=== PATIENT | female | born 1985 | race Caucasian/White ===

== ENCOUNTER → 2016-05-07 | Outpatient (CLI) | payer OTHER ==
--- NOTE | 2016-05-08 07:25 | USB ---
Reason for exam: follow-up at short interval from prior study. Physical Findings: Nurse did not find any significant physical abnormalities on exam. US Breast LT Left breast ultrasound including all four quadrants, the retroareolar region and axilla demonstrates a 0.4 x 0.2 x 0.4cm oval lesion too small to characterize at 9 o'clock and a 0.7 x 0.4 x 0.7cm oval, cystic lesion at 10 o'clock. These results were verbally communicated with the patient and result sheet given to the patient on 05/07/16. ASSESSMENT: Benign, BI-RAD 2 RECOMMENDATION: Routine screening mammogram of both breasts at age 40.
== END | disposition home or self-care (01) ==
LOC: RADUSWWP 14:51
PROVIDERS: ATTEND Family Medicine
DX: N64.59 Other signs and symptoms in breast (principal)

== ENCOUNTER → 2016-12-11 | Outpatient (CLI) | payer OTHER ==
--- NOTE | 2016-12-11 19:05 | MR ---
EXAMINATION TYPE: MR knee RT wo con DATE OF EXAM: 12/11/2016 COMPARISON: NONE HISTORY: Unilateral primary osteoarthritis per order, right knee, pain x 10 months per patient. Patie nt's history of prior right knee surgery. TECHNIQUE: Multiplanar, multisequence images of the knee is performed without IV contrast. FINDINGS: MEDIAL MENISCUS: Anterior horn is intact without tear. There is triangular-shaped increased opacity p osterior horn of medial meniscus does not distinctly extend to articular surface, findings are consis tent with full-thickness meniscal tear. LATERAL MENISCUS: Anterior and posterior horns are intact without tear. CRUCIATE LIGAMENTS: The anterior and posterior cruciate ligaments are intact. Increased signal is see n diffusely and anterior cruciate ligament. COLLATERAL LIGAMENTS: The medial collateral ligament and lateral collateral ligament complex are inta ct and unremarkable. EXTENSOR MECHANISM: Visualized quadriceps and patellar tendons are intact. There is well-defined loss of Hoffa's fat pad particularly inferior and deeper aspects, this is presumed related to prior surge ry for cyst removal per patient. EFFUSION: No significant suprapatellar joint effusion. POPLITEAL CYST: No popliteal/rice cyst. TRICOMPARTMENT SPACES: Mild to moderate joint space loss medial tibiofemoral compartment is seen. No significant spurring is noted. CARTILAGE: Patellar articular cartilage is fairly well-maintained. Some mild thinning of articular ca rtilage medial tibiofemoral compartment is noted BONE MARROW SIGNAL: Heterogeneity of bone marrow signal intensity consistent with red marrow reconver ceci is present most prominent in the visualized distal femur. OTHER: No additional significant abnormality is appreciated. IMPRESSION: 1. Evidence of prior surgery anteriorly at level of Hoffa's fat pad. 2. Intrasubstance tear posterior horn of medial meniscus. No full-thickness meniscal or ligamentous t ear is seen. 3. Myxoid degeneration ACL. 4. Mild to moderate joint space loss patellofemoral compartment. Mild thinning of articular cartilage medial tibiofemoral compartment.
== END | disposition home or self-care (01) ==
LOC: RADMRIMAIN 15:04
PROVIDERS: ATTEND Family Medicine
DX: S83.241A Other tear of medial meniscus, current injury, right knee, initial encounter (principal); M17.11 Unilateral primary osteoarthritis, right knee

== ENCOUNTER → 2018-05-14 | Outpatient (CLI) | payer OTHER ==
--- NOTE | 2018-05-14 17:19 | US ---
EXAMINATION TYPE: US abdomen complete DATE OF EXAM: 05/14/2018 COMPARISON: NONE CLINICAL HISTORY: R10.9 ABD PAIN. Patient stated has epigastric pain and /fullness after meals and no steve x 3 months; bilateral pelvic pain EXAM MEASUREMENTS: Liver Length: 17.9 cm Gallbladder Wall: 0.2 cm CBD: 0.3 cm Spleen: 11.5 cm Right Kidney: 11.7 x 8.4 x 5.9 cm Left Kidney: 8.3 x 4.9 x 4.9 cm Pancreas: wnl Liver: wnl Gallbladder: wnl Evidence for sonographic Krishnan's sign: no CBD: wnl Spleen: wnl Right Kidney: wnl Left Kidney: smaller than right kidney; mild hydronephrosis with noted dilated renal pyramids throug hout Upper IVC: wnl Abd Aorta: wnl IMPRESSION: Visualized abdomen ultrasound is unremarkable.
--- NOTE | 2018-05-14 17:21 | US ---
EXAMINATION TYPE: US pelvic complete DATE OF EXAM: 05/14/2018 COMPARISON: NONE CLINICAL HISTORY: R10.2 PELVIC AND PERINEAL PAIN. Patient stated has bilateral pelvic pain x 3 months , hormonal imbalance; G0; TECHNIQUE: Transabdominal (TA). Transabdominal sonographic images of the pelvis were acquired. Date of LMP: 05/05/2018 EXAM MEASUREMENTS: Uterus: 7.1 x 3.6 x 2.8 cm Endometrial Stripe: 0.5 cm Right Ovary: 2.9 x 2.1 x 2.5 cm Left Ovary: 4.0 x 3.1 x 2.4 cm 1. Uterus: Anteverted 2. Endometrium: thickness is wnl for Day 10 LMP 3. Right Ovary: multiple follicles with largest cyst = 1.1 x 0.9 x 1.0cm. 4. Left Ovary: multiple follicles with largest seen as cyst within a cyst = 1.8 x 1.4 x 1.1cm. Spectral, color and waveform Doppler imaging shows good arterial and venous flow within the ovaries ; there is no evidence for ovarian torsion. 5. Bilateral Adnexa: distended, fluid filled loop of bowel noted left superiorly near umbilicus, con tinuing mid at left ovary and followed distally in posterior pelvis, with dynamic peristalsing wall c hanges observed 6. Posterior cul-de-sac: small amount of free fluid here = 1.0 x 1.3 x 0.3 x 0.523 = 0.2ml. Urinary bladder is sonolucent. Posterior wall is normal. IMPRESSION: 1. Left ovarian cyst. 2. Small right ovarian cyst.
== END | disposition home or self-care (01) ==
LOC: RADUSWWP 06:55
PROVIDERS: ATTEND Family Medicine
DX: N83.201 Unspecified ovarian cyst, right side (principal); N83.202 Unspecified ovarian cyst, left side; R10.9 Unspecified abdominal pain
CPT/HCPCS: 76700; 76856

== ENCOUNTER 2018-05-29 08:34 | Day surgery (SDC) | payer OTHER ==
[2018-05-27 13:47] VITALS: BMI 32.5
[~2018-05-29 08:34] MED LIST: LACTATED RINGERS 1,000 ML IV SCH; LIDOCAINE 1% 20 ML VIAL (10MG/ML) FOR IV START INTRADERMA PRN
[2018-05-29 09:13] VITALS: TEMP 97.6
[2018-05-29] MEDS ORDERED: LIDOCAINE 1% INJ 10MG/ML (20 ML MDV) ONE (10:14)
[2018-05-29] MEDS ORDERED: PROPOFOL 10 MG/ML 20 ML VIAL IV ONE (10:14)
--- NOTE | 2018-05-29 10:49 | P.PCN ---
Date of Procedure: 05/29/18 Procedure(s) Performed: Procedure: Esophagogastroduodenoscopy and biopsy. Preoperative diagnosis: Gastroesophageal reflux and epigastric burning not responding to medical therapy. Postoperative diagnosis: 1. Sliding hiatal hernia with reflux esophagitis. 2. Mild gastritis. 3. Biopsies obtained from the duodenum, antrum and esophagus. Preparation and sedation: Was provided by anesthesia. Brief clinical history: The patient is a 33-year-old female who was referred for issues with heartburn and reflux over around 2 months duration. She denied any alarm symptoms. No nausea or vomiting. This evaluation is to assess for esophagitis, complicated reflux disease or other pathology. Procedure: With the patient on her left lateral decubitus position and after informed consent and adequate sedation, I passed the Olympus-GIF H190 video upper endoscope through the cricopharyngeus down the esophagus. GE junction was around 38 cm from the incisors and there was a 1-2 cm sliding hiatal hernia with evidence of LA grade B distal reflux esophagitis. There were some corrugations in the esophagus raising the possibility of eosinophilic esophagitis as well. There were no definite strictures. The endoscope was then passed into the stomach which was insufflated with air and inspected in detail including the retroflex view in the cardia. There was some mottling and erythema in the antrum but no ulcers or erosions. Pyloric channel , duodenal bulb, post bulbar area and descending duodenum appeared within normal limits. I obtained biopsies from the duodenum, antrum and esophagus then the endoscope was withdrawn. The patient tolerated the procedure well. Plan: The patient was reassured. Will await biopsy results and make further plans based on her course and biopsy results. She will follow-up with you as planned and I will keep you updated on her progress.
[2018-05-29 10:50] VITALS: BP 121/82; PULSE 72; RESP 18
== END 2018-05-29 11:40 | disposition home or self-care (01) ==
LOC: ORWHC2ENDO 08:34
DX: K21.0 Gastro-esophageal reflux disease with esophagitis (principal); K29.50 Unspecified chronic gastritis without bleeding; K44.9 Diaphragmatic hernia without obstruction or gangrene; I10 Essential (primary) hypertension; Z79.899 Other long term (current) drug therapy
CPT/HCPCS: 81025; 88305; 43239; J2001; J2704

== ENCOUNTER → 2021-06-01 | Outpatient (CLI) | payer OTHER ==
--- NOTE | 2021-06-01 12:40 | MR ---
EXAMINATION TYPE: MR knee RT wo con DATE OF EXAM: 06/01/2021 COMPARISON: MRI right leg 12/11/2016 HISTORY: Right outer knee pain, pain behind knee, locking, and swelling for 6 months due to fall on k nee. History of surgery. TECHNIQUE: Multiplanar, multisequence imaging of the right knee is performed without IV contrast. FINDINGS: There is motion on the exam which could limit evaluation. MEDIAL MENISCUS: There is abnormal increased intrasubstance signal within the medial meniscus, no def initive tear identified, detail is limited LATERAL MENISCUS: Anterior and posterior horns are intact without tear within the limitations of the exam. CRUCIATE LIGAMENTS: Fibers of the anterior cruciate ligament appear attenuated, there is some fluid s ignal along the course of the fibers especially in its proximal extent, there may be associated gangl ion cyst measuring 2 cm, partial tear, similar findings seen on prior exam COLLATERAL LIGAMENTS: The medial collateral ligament and lateral collateral ligament complex are inta ct and unremarkable. EXTENSOR MECHANISM: Visualized quadriceps and patellar tendons are intact. EFFUSION: There is a small joint effusion, Hoffa's fat pad shows a similar appearance to prior POPLITEAL CYST: No popliteal/rice cyst. TRICOMPARTMENT SPACES: Maintained CARTILAGE: There are areas of fissuring at the posterior patellar cartilage, axial image #27 consiste nt with grade 2 to grade III chondromalacia, BONE MARROW SIGNAL: Within normal limits OTHER: There is some subcutaneous edema noted anteriorly to be patellar tendon IMPRESSION: Motion limits the detail of the exam. Chondromalacia noted at the posterior patella, additional findi ngs above
== END | disposition home or self-care (01) ==
LOC: RADMRIMAIN 09:34
PROVIDERS: ATTEND Nurse Practitioner Adult Health
DX: M22.41 Chondromalacia patellae, right knee (principal)

== ENCOUNTER → 2023-02-11 | Outpatient (CLI) | payer OTHER ==
--- NOTE | 2023-02-11 14:41 | US ---
EXAMINATION TYPE: US extremity nonvasc mass RT DATE OF EXAM: 02/11/2023 COMPARISON: NONE CLINICAL INDICATION: Female, 38 years old with history of D17.30 BENIGN LIPOMATOUS NEOPLASM OF SKIN; Pt states palpable lump right anterior ankle/vyas x 1 month/ pt states history of lipomas in differen t parts of her body TECHNIQUE: Right anterior ankle/vyas FINDINGS: Vague, Isoechoic to slightly hyperechoic area in pt's palpable= 1.3 x 0.5 x 1.1 cm ?poss ible lipoma IMPRESSION: Probable lipoma. Correlate clinically.
== END | disposition home or self-care (01) ==
LOC: RADUSWWP 13:50
PROVIDERS: ATTEND Family Medicine
DX: D17.30 Benign lipomatous neoplasm of skin and subcutaneous tissue of unspecified sites (principal)

== ENCOUNTER → 2023-05-09 | Day surgery (SDC) | payer OTHER ==
[2023-05-06 11:03] VITALS: BMI 32.5
[~2023-05-09] MED LIST changes: +HYDROmorphone 0.5 MG/0.5 ML SYRINGE IVP PRN; -LACTATED RINGERS 1,000 ML IV SCH; +LIDOCAINE 1% (10MG/ML) FOR IV START INTRADERMA PRN; -LIDOCAINE 1% 20 ML VIAL (10MG/ML) FOR IV START INTRADERMA PRN; +LIDOCAINE 1% INJ 10MG/ML (20 ML MDV) ONE; +MIDAZOLAM 2 MG/2 ML VIAL ONE; +ONDANSETRON 4 MG/2 ML VIAL IVP PRN; +PROPOFOL 10 MG/ML 20 ML VIAL IV ONE; +Pre Op ABX Message 1 EACH MISC MISCELLANE ONE; +droPERidol 5 MG/2 ML VIAL IVP ONE; +fentaNYL (PF) 50 MCG/ML 2 ML AMP ONE
--- NOTE | 2023-05-09 06:18 | P.GSHP ---
History of Present Illness H&P Date: 05/09/23 CHIEF COMPLAINT: Right lower leg mass HISTORY OF PRESENT ILLNESS: The patient is a 89year-old female who presents with painful right lower leg mass for over 6 months. She presents today for surgical excision. PAST MEDICAL HISTORY: Please see list. PAST SURGICAL HISTORY: Please see list. MEDICATIONS: Please see list. ALLERGIES: Please see list. SOCIAL HISTORY: No illicit drug use FAMILY HISTORY: No reports of Crohn disease or ulcerative colitis. REVIEW OF ORGAN SYSTEMS: CONSTITUTIONAL: No reports of fevers or chills. GI: Denies any blood in stools or constipation. PHYSICAL EXAM: VITAL SIGNS: Stable Musculoskeletal: Right anterior lower leg mass, 3 cm SKIN: Lesion identified along bilateral thighs. GENERAL: Well developed and in no acute distress. Pleasant. HEENT: No sclera icterus. Extraocular movements grossly intact. Moist buccal mucosa. Head is atraumatic, normocephalic. Hears conversational speech. No nasal drainage. NECK: Supple without lymphadenopathy. No JV distention. CHEST: Non-labored respirations and equal bilateral excursions. CARDIOVASCULAR: Regular rate and rhythm. Palpable 2+ radial pulses. ABDOMEN: Soft. Non-tender. Nondistended. NEUROLOGIC: No focal or lateralizing signs. PSYCH: Appropriate affect. Alert and oriented to person, place and time. ASSESSMENT: 1. Right lower leg mass PLAN: 1. Will proceed of excision of subcutaneous tumors along right lower leg mass 2. DVT prophylaxis. 3. Antibiotic prophylaxis. 4. Time of recovery, at least one week. Past Medical History Past Medical History: Hypertension Additional Past Medical History / Comment(s): dizziness at times, upper abdominal pain History of Any Multi-Drug Resistant Organisms: None Reported Past Surgical History: Orthopedic Surgery Additional Past Surgical History / Comment(s): rt carpal tunnel release, cyst removed from rt knee, lasik eye surgery, VAIRCOSE VEIN STRIPPING Past Anesthesia/Blood Transfusion Reactions: Motion Sickness Smoking Status: Never smoker - Past Family History Mother Family Medical History: No Reported History Medications and Allergies Home Medications Medication Instructions Recorded Confirmed Type Cyanocobalamin [Vitamin B-12 1,000 mcg IM QMONTHLY 05/06/23 05/06/23 History Injection] Losartan Potassium 100 mg PO DAILY 05/06/23 05/06/23 History Tirzepatide [Zepbound] 5 mg SQ WE 05/06/23 05/06/23 History hydroCHLOROthiazide [Hydrodiuril] 25 mg PO DAILY 05/06/23 05/06/23 History medroxyPROGESTERone [Depo-Provera] 150 mg IM Q90D 05/06/23 05/06/23 History Allergies Allergy/AdvReac Type Severity Reaction Status Date / Time No Known Allergies Allergy Verified 05/06/23 10:32
[2023-05-09] MEDS: LACTATED RINGERS 1,000 ML IV SCH (07:16)
[2023-05-09] MEDS: DEXAMETHASONE SOD PHOSPHATE 4 MG/ML 1 ML VIAL IV ONE (07:22)
[2023-05-09] MEDS: ONDANSETRON 4 MG/2 ML VIAL IVP ONE (07:22)
[2023-05-09] MEDS: ACETAMINOPHEN TAB 500 MG TAB PO PRN (07:22)
[2023-05-09] MEDS: HEPARIN SODIUM,PORCINE 5,000 UNIT/ML 1 ML VIAL SQ PRN (07:22)
[2023-05-09 07:44] LABS: Basophils % (A) 1 %; Eosinophils # (A) 0.2 k/uL (0-0.7); Eosinophils % (A) 4 %; HGB 14.2 gm/dL (11.4-16.0); Lymphocytes # (A) 1.6 k/uL (1.0-4.8); Lymphocytes % (A) 31 %; MCH 32.4 pg (25.0-35.0); MCHC 34.5 g/dL (31.0-37.0); Mean Platelet Volume 6.9; Monocytes # (A) 0.4 k/uL (0-1.0); Monocytes % (A) 8 %; Neutrophils # (A) 2.7 k/uL (1.3-7.7); Neutrophils % (A) 54 %; Platelet Count 235 k/uL (150-450); RBC 4.37 m/uL (3.80-5.40); RDW 11.4 % (11.5-15.5)
[2023-05-09 07:52] LABS: ALT 19 U/L (4-34); AST 27 U/L (14-36); African American GFR (CKD) >90 (>60 ml/min/1.73 sqM); Albumin 4.2 g/dL (3.5-5.0); Alkaline Phosphatase 59 U/L (38-126); Anion Gap 9 mmol/L; Blood Urea Nitrogen 14 mg/dL (7-17); Calcium 9.2 mg/dL (8.4-10.2); Carbon Dioxide 25 mmol/L (22-30); Chloride 105 mmol/L (98-107); Glucose 84 mg/dL (74-99); Non-African American GFR(CKD) >90 (>60 ml/min/1.73 sqM); Potassium 3.8 mmol/L (3.5-5.1); Sodium 139 mmol/L (137-145); Total Bilirubin 0.4 mg/dL (0.2-1.3); Total Protein 6.9 g/dL (6.3-8.2)
[2023-05-09] MEDS: LIDOCAINE 0.5%-EPI 1:200,000 50 ML VIAL SQ ONE ×2 (08:42→09:04)
[2023-05-09 09:52] VITALS: TEMP 97
--- NOTE | 2023-05-09 10:01 | P.OP ---
Date of Procedure: 05/09/23 Description of Procedure: SURGEON: ALTHEA AGUILA MD FAGOT MAKER: NONE. PREOPERATIVE DIAGNOSES: 1. Right lower leg mass 2. Obesity due to excess calories, BMI 32.8 POSTOPERATIVE DIAGNOSES: 1. Right lower leg mass, anterior lateral, 4 x 3 cm 2. Obesity due to excess calories, BMI 32.8 OPERATION: 1. Excision of right lower leg mass, subfascial tumor, 4 x 3 cm. 2. Intermediate closure of anterior lateral right lower leg incision, 5 cm. ANESTHESIA: LMA with local ESTIMATED BLOOD LOSS: 5 mL. SPECIMENS REMOVED: 1. Right lower leg anterior lateral tumor COMPLICATIONS: None. FINDINGS: 1. Right lower leg thigh excision, 4 x 3 cm subcutaneous tissue INDICATIONS: The patient is a 38-year-old female who presents with painful right lower leg tumor. Surgical options, including excision was discussed. Benefits and risks were described. Informed consent was obtained. DESCRIPTION OF PROCEDURE: Patient was brought into the operating room, laid in left lateral decubitus position. After adequate LMA, the right lower leg was prepped and draped in standard sterile fashion using ChloraPrep. A timeout protocol was confirmed with the surgical team regarding patient's name including procedures to be performed. Preoperative medications was administered. Next, a local field block was administered. The right lower leg anterior lateral mass was measured using a ruler with borders marked with indelible marker. A longitudinal incision along the skin tension lines of 5 cm in size was made into the dermis followed by circumferential dissection using electro-Bovie cautery into the subcutaneous tissue where extensions was found into the deep fascia, subfascial. The tumor was expressed from the wound and dissected free from surrounding tissues. Hemostasis was checked with electrocautery cautery. The skin was cleansed. The wound was closed in multiple layers including 3-0 Vicryl for the deep subcutaneous tissue in interrupted fashion. The skin was closed using 4-0 Monocryl. Exofin tape including liquid glue was used as the final third layer. Optifoam dressing was placed. Coban was placed At the end of the procedure, needle, sponge, and instrument count had been verified correct by the certified surgical assistant. The patient was taken to the postanesthesia care unit in stable condition. Plan - Discharge Summary Discharge Rx Participant: No New Discharge Prescriptions: New Acetaminophen Tab [Tylenol Tab] 1,000 mg PO Q6HR PRN #30 tablet PRN Reason: Pain Ibuprofen [Motrin] 600 mg PO Q8HR PRN #30 tab PRN Reason: Pain Continue Cyanocobalamin [Vitamin B-12 Injection] 1,000 mcg IM QMONTHLY Tirzepatide [Zepbound] 5 mg SQ WE Losartan Potassium 100 mg PO DAILY medroxyPROGESTERone [Depo-Provera] 150 mg IM Q90D hydroCHLOROthiazide [Hydrodiuril] 25 mg PO DAILY Discharge Medication List Cyanocobalamin [Vitamin B-12 Injection] 1,000 mcg IM QMONTHLY 05/06/23 [History] Losartan Potassium 100 mg PO DAILY 05/06/23 [History] Tirzepatide [Zepbound] 5 mg SQ WE 05/06/23 [History] hydroCHLOROthiazide [Hydrodiuril] 25 mg PO DAILY 05/06/23 [History] medroxyPROGESTERone [Depo-Provera] 150 mg IM Q90D 05/06/23 [History] Acetaminophen Tab [Tylenol Tab] 1,000 mg PO Q6HR PRN #30 tablet 05/09/23 [Rx] Ibuprofen [Motrin] 600 mg PO Q8HR PRN #30 tab 05/09/23 [Rx] Follow up Appointment(s)/Referral(s): Althea Aguila MD [STAFF PHYSICIAN] - 05/14/23 4:15 pm Patient Instructions/Handouts: General Mass Excision (GEN) Activity/Diet/Wound Care/Special Instructions: DO NOT REMOVE DRESSING. SEE INSTRUCTIONS ON DRESSING May shower. No bath tub soaks for two weeks until Apr Diet as tolerated. Use Tylenol and ibuprofen or Aleve scheduled for the next 24-48 hours for best pain relief. Use ice along incisions for today to prevent swelling. Discharge Disposition: HOME SELF-CARE
[2023-05-09 10:23] VITALS: RESP 14
[2023-05-09 10:53] VITALS: BP 113/82; PULSE 62
== END | disposition home or self-care (01) ==
LOC: OR 06:38
PROVIDERS: ATTEND Surgery Plastic and Reconstructive Surgery
DX: D16.21 Benign neoplasm of long bones of right lower limb (principal); R22.41 Localized swelling, mass and lump, right lower limb; E66.09 Other obesity due to excess calories; Z68.32 Body mass index [BMI] 32.0-32.9, adult; I11.9 Hypertensive heart disease without heart failure; G43.809 Other migraine, not intractable, without status migrainosus; Z98.890 Other specified postprocedural states; Z79.3 Long term (current) use of hormonal contraceptives; Z79.84 Long term (current) use of oral hypoglycemic drugs; Z79.899 Other long term (current) drug therapy
CPT/HCPCS: 27634; 81025; 88304; 80053; 85025; J2250; J1644; J1100; J0690; J2405; J2001; J3010; J2704